=== PATIENT | male | born 2005 | race Caucasian/White ===

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

== ENCOUNTER 2024-09-21 03:23 | Emergency (ER) | payer SELFPAY ==
[2024-09-21] MEDS: Lidocaine 1% with EPINEPHrine 1:100,000 10 ML MDV INFILT ONE (03:50)
[2024-09-21] MEDS: Bacitracin Oint 1 GM U/D Packet TOP ONE (03:50)
== END 2024-09-21 04:25 | disposition home or self-care (01) ==
LOC: MW.ED 03:23
DX: S61.421A Laceration with foreign body of right hand, initial encounter (principal); S50.851A Superficial foreign body of right forearm, initial encounter; Z88.0 Allergy status to penicillin; W18.02XA Striking against glass with subsequent fall, initial encounter
CPT/HCPCS: 12002; 73090-26-RT; 73090-RT; 73120-26-RT; 73120-RT; 99283